=== PATIENT | female | born 1965 | race African-American/Black ===

== ENCOUNTER 2019-04-19 13:06 | Emergency (ER) | payer SELFPAY ==
[~2019-04-19] VITALS: Ht 160 cm; Wt 65.9 kg
[2019-04-19 15:40] VITALS: BP 138/72
== END 2019-04-19 17:53 | disposition home or self-care (01) ==
LOC: EMS 13:07
DX: M25.512 Pain in left shoulder (principal); M79.671 Pain in right foot; F17.210 Nicotine dependence, cigarettes, uncomplicated; R03.0 Elevated blood-pressure reading, without diagnosis of hypertension